=== PATIENT | male | born 1990 | race Asian ===

== ENCOUNTER 2020-05-19 19:51 | Emergency (ER) | payer SELFPAY ==
[~2020-05-19] VITALS: Ht 177.8 cm; Wt 84.4 kg
[2020-05-19 20:12] VITALS: BP 142/80
--- NOTE | 2020-05-19 20:15 | NUR ---
TO LOBBY A/W BED AMBULATORY
--- NOTE | 2020-05-19 21:20 | NUR ---
SEEN AND EXAMINED BY BAM WITH ORDERS, CARRIED OUT
[2020-05-19] MEDS ORDERED: LIDOCAINE 2% 1000 MG/50 ML VIAL INJ ONE (21:30)
--- NOTE | 2020-05-19 21:50 | NUR ---
Patient has a 1 cm laceration to LEFT FOREARM , 4THFINGER. Dr. ALMAGUER applied sutures using sterile technique. Edges well approximated. Site cleansed with NS. No bleeding noted. Pt tolerated well.
[2020-05-19] MEDS ORDERED: BACITRACIN OINT 500 UNITS/GM PKT TP ONE (22:05)
--- NOTE | 2020-05-19 22:20 | NUR ---
BACITRACIN WAS PLACED ON PTS ARM AND HAND WOUND, THEN COVERED IN A NON ADHERENT GAUZE AND WRAPPED WITH KOBAND. P[facility].
[2020-05-19 22:22] VITALS: BP 122/78
--- NOTE | 2020-05-19 22:22 | NUR ---
Patient discharged with v/s stable. Written and verbal after care instructions given and explained. Patient alert, oriented and verbalized understanding of instructions. Ambulatory with steady gait. All questions addressed prior to discharge. ID band removed. Patient advised to follow up with PMD. Rx of BACITRICIN given. Patient educated on indication of medication including possible reaction and side effects. Opportunity to ask questions provided and answered.
== END 2020-05-19 22:22 | disposition home or self-care (01) ==
LOC: MED 19:51
DX: S51.812A Laceration without foreign body of left forearm, initial encounter (principal); S61.215A Laceration without foreign body of left ring finger without damage to nail, initial encounter; F17.210 Nicotine dependence, cigarettes, uncomplicated; W54.0XXA Bitten by dog, initial encounter; Y93.89 Activity, other specified; Y92.89 Other specified places as the place of occurrence of the external cause; Y99.8 Other external cause status
CPT/HCPCS: 99284